=== PATIENT | male | born 1970 | race Caucasian/White ===

== ENCOUNTER 2016-05-13 15:45 | Emergency (ER) | payer OTHER ==
[~2016-05-13] VITALS: Ht 175.3 cm; Wt 87.9 kg
[~2016-05-13 15:45] MED LIST: BYSTOLIC10 MG PO; KEFLEX500 MG PO; PERCOCET 5/31 TABLET PO; ZANTAC150 MG PO; ZOFRAN4 MG PO
[2016-05-13] MEDS ORDERED: BACTRIM,SEPT1 TABLET PO (17:30)
[2016-05-13] MEDS ORDERED: KEFLEX500 MG PO (17:30)
[2016-05-13] MEDS ORDERED: ULTRAM50 MG PO (17:30)
[2016-05-13 18:12] VITALS: BP 154/86
== END 2016-05-13 18:12 | disposition home or self-care (01) ==
LOC: EME 15:45 → RME 15:45
DX: S31.31XD Laceration without foreign body of scrotum and testes, subsequent encounter (principal); Z48.02 Encounter for removal of sutures; I10 Essential (primary) hypertension; F17.200 Nicotine dependence, unspecified, uncomplicated
CPT/HCPCS: 99281; 99283

== ENCOUNTER 2016-12-09 11:48 | Emergency (ER) | payer OTHER ==
[~2016-12-09] VITALS: Ht 172.7 cm; Wt 81.5 kg
[~2016-12-09 11:48] MED LIST changes: +BACTRIM,SEPT1 TABLET PO; +ULTRAM50 MG PO
[2016-12-09] MEDS ORDERED: VALIUM5 MG PO (13:58)
[2016-12-09] MEDS ORDERED: PREDNISONE10 MG PO (13:58)
[2016-12-09 14:12] VITALS: BP 128/80
== END 2016-12-09 14:13 | disposition home or self-care (01) ==
LOC: EME 11:48
DX: M54.5 Low back pain (principal); F17.200 Nicotine dependence, unspecified, uncomplicated
CPT/HCPCS: 99281; 99283

== ENCOUNTER 2017-06-01 11:49 | Emergency (ER) | payer OTHER ==
[~2017-06-01] VITALS: Ht 162.6 cm; Wt 82.2 kg
[~2017-06-01 11:49] MED LIST changes: +PREDNISONE10 MG PO; +VALIUM5 MG PO
[2017-06-01 13:22] LABS: HEMATOCRIT 47.7 % (38.0-50.0); HEMOGLOBIN 16.5 G/DL (12.5-16.6); MCH 34.6 PG (29.0-34.0); MCHC 34.6 G/DL (30.0-36.0); PLATELET COUNT 161 K/uL (156-360); RBC DIS.WIDTH-CV 12.3 % (11.8-14.6); RED BLOOD COUNT 4.77 M/uL (4.00-5.50)
[2017-06-01 13:31] LABS: CHLORIDE 108 mEq/L (99-109); POTASSIUM 4.4 mEq/L (3.7-5.4); SODIUM 140 mEq/L (136-147)
[2017-06-01 13:33] LABS: GLUCOSE 105 mg/dL (70-99)
[2017-06-01 13:37] LABS: CREATININE 0.8 mg/dL (0.6-1.3); GFR ESTIMATE (CALCULATED) > 59 mL/min/ (58.99-99999)
[2017-06-01 13:38] LABS: UREA NITROGEN (BUN) 15 mg/dL (9-23)
[2017-06-01 13:43] LABS: TROP-I INTERPRETATION NEGATIVE; TROPONIN-I < 0.01 ng/mL (0.0-0.30)
[2017-06-01 16:46] LABS: TROP-I INTERPRETATION NEGATIVE; TROPONIN-I < 0.01 ng/mL (0.0-0.30)
[2017-06-01] MEDS ORDERED: ERYTHROMYC1 APPLICAT BOTH EYES (17:25)
[2017-06-01 17:53] VITALS: BP 159/98
== END 2017-06-01 17:55 | disposition home or self-care (01) ==
LOC: EME 11:49
PROVIDERS: Physician Assistant
DX: R07.9 Chest pain, unspecified (principal); H00.012 Hordeolum externum right lower eyelid; I10 Essential (primary) hypertension; F17.200 Nicotine dependence, unspecified, uncomplicated; J44.9 Chronic obstructive pulmonary disease, unspecified
CPT/HCPCS: 71046; 80048; 84484; 85027; 93005; 99281; 99284